=== PATIENT | female | born 1980 | race Caucasian/White ===

== ENCOUNTER → 2016-11-16 | Day surgery (SDC) | payer SELFPAY ==
[~2016-11-16] VITALS: Ht 165.1 cm; Wt 89.8 kg
[~2016-11-16] MED LIST: AMBIEN10 M1 PO
--- NOTE | 2016-11-17 15:36 | Operative Report ---
Operative/Inv Procedure Report Surgery Date: 11/16/16 Name of Procedure: Liposuction upper low back fat transfer to buttock, fat graft upper lip Pre-Operative Diagnosis: Cosmetic lipodystrophy of back and buttock, thinned upper lip Post-Operative Diagnosis: Same Estimated Blood Loss: scant (300) Surgeon/Mixer And Scaler: JENNIFER AL MD Anesthesia: general endotracheal tube Operative/Procedure Note Note: Patient was counseled extensively in regards to her request for surgical intervention to treat lipodystrophy of the upper lower back and buttock. Patient was given and a SPS informed consent for the procedure and has no further questions regarding at this morning since we have discussed many times in the office. The patient has a significant amount of fat and redundant skin of the upper lower back especially the waist and no guarantees were given as to the amount of shrinkage this skin will undergo after fat removal. The ciliary definitely visible scars which will be camouflages best and possible within existing tattoos. We talked about the likelihood of definite asymmetry is numbness of the skin there is a risk of infection bleeding hematoma seroma open wounds numbness pain and disfigurement. Clots and fat emboli causing very serious potentially life-threatening concerns. We discussed that a moderate amount of fat will be lost. Patient agreed informed consent was signed. The patient's back was photographed just to show her the areas that would be treated those that would not. Be saved. Once the patient was in agreement she was taken to the operating room. She was intubated on the table and then put into the prone position and appropriately padded. 4 L of tumescent fluid was instilled in the upper and lower back. Proximally 3500 mL was removed. The fat was processed with the revolve system at approximate 450 mL was injected into each buttock until the pressure was deemed to be some ice. Treatment was achieved on the table anticipating shrinkage of the waist skin to some degree. All injections were done superior to the deep musculature. At that TIME 3 mL of fat was injected into the patient's upper lip
== END ==
LOC: STS 08-31 07:00
DX: Z41.1 Encounter for cosmetic surgery (principal); E65 Localized adiposity; K21.9 Gastro-esophageal reflux disease without esophagitis; I49.9 Cardiac arrhythmia, unspecified; G47.33 Obstructive sleep apnea (adult) (pediatric)
CPT/HCPCS: 81025; J0171; J0690; J2250; J3250